=== PATIENT | female | born 1950 | race Caucasian/White ===

== ENCOUNTER 2017-08-16 20:40 | Inpatient (IN) | payer MEDICARE, OTHER ==
[~2017-08-16] VITALS: Ht 162.6 cm; Wt 61.0 kg
[2017-08-16 20:42] VITALS: BP 129/70; PULSE 111; RESP 16; TEMP 96.7
[2017-08-16] MEDS ORDERED: SODIUM CHLORIDE 0.9% FLUSH 5 ML FLUSH IV FLUSH PRN (22:15)
--- NOTE | 2017-08-16 22:15 | PD ---
HPI Chief Complaint: Psychiatric Symptoms Time Seen by Provider: 21:54 Travel History International Travel<30 days: No Contact w/Intl Traveler<30days: No Traveled to known affect area: No History of Present Illness HPI Patient is brought into the emergency Department by her grandson. Patient states that she recently came here from [place] to try to start a new life. Patient states that she is having difficulty sleeping over the past 4 days. Patient states she's been having increasing neck pain over the past 4 days as well and reports difficulty swallowing from time to time. Patient states she feels that her lymph nodes are swollen. Patient reports intermittent headaches with this. Patient has a history of COPD has occasional shortness of breath that she uses her inhaler for this and seems to help. Patient reports nonproductive cough with this. Patient denies any known fevers, nausea, vomiting, chest pain, abdominal pain, loss change in bowel or bladder, homicidal or suicidal ideations, weight loss, or other acute medical concerns. Patient states she is wanting to get in with a neurologist for her chronic neck pain as well as with pain management. Patient's grandson spoke with me outside of the room states that he received a call a few days ago from [facility] asking if he be able to allow his grandmother to come to [place] to stay with him as she was apparently asking for this. Patient was reportedly staining and some type of long term and grandson was willing to have her come down. States he picked her up in [place] 2 days ago everything seemed fine initially. However yesterday patient started talking about how [place] would not allow her to do things. States patient will call him by different names and become angry. States he found her in the bathroom crying, making statements that she did not want to live, and had to break into the bathroom using a butter knife to get her out. States today that he found his grandmother making a sandwich with sharp knives laid out on the table range from small to big, which caused him some concern as he has small children at home. Patient states he is last saw his grandmother approximately 10 years and does not much about her history. States he spoke with his mother, who is the patient's daughter, and was told that his grandmother has a history of paranoid schizophrenia, but refuses to take medication for this. [facility] Past Medical History Anxiety: Yes Depression: Yes COPD: Yes Diminished Hearing: No Hypertension: Yes Tetanus Vaccination: Unknown ?: Not LMP: menpause Past Surgical History Appendectomy: Yes Social History Alcohol Use: No Tobacco Use: Yes Substance Use: No Allergies-Medications (Allergen,Severity, Reaction): Coded Allergies: No Known Allergies (Unverified , 08/16/17) Review of Systems Except as stated in HPI: all other systems reviewed are Neg Physical Exam Narrative GENERAL: Well-developed, well nourished, in no acute distress, and non-ill appearing. SKIN: Focused skin assessment warm and dry. HEAD: Atraumatic. Normocephalic. EYES: Pupils equal and round. EOMI. No scleral icterus. No injection or drainage. ENT: No nasal bleeding or discharge. Mucous membranes pink and moist. Posterior pharynx non-erythematous and without exudate. Uvula is midline. Tympanic membranes are pearly connor bilaterally. NECK: Trachea midline. Mild cervical lymphadenopathy. Supple. No nuclear rigidity. CARDIOVASCULAR: Regular rate and rhythm. No murmur appreciated. RESPIRATORY: No accessory muscle use. No respiratory distress. Scant wheezing throughout. Breath sounds equal bilaterally. MUSCULOSKELETAL: No obvious deformities. No clubbing. No cyanosis. No edema. Full range of motion. NEUROLOGICAL: Awake and alert. No obvious cranial nerve deficits. Motor grossly within normal limits. Normal speech. PSYCHIATRIC: Appropriate mood and affect; insight and judgment normal. Data Data Last Documented VS Vital Signs Date Time Temp Pulse Resp B/P (MAP) Pulse Ox O2 Delivery O2 Flow Rate FiO2 08/16/17 20:42 96.7 111 16 129/70 (89) Room Air Orders Orders Electrocardiogram (08/16/17 22:05) Ammonia (08/16/17 22:05) Complete Blood Count With Diff (08/16/17 22:05) Comprehensive Metabolic Panel (08/16/17 22:05) Prothrombin Time / Inr (Pt) (08/16/17 22:05) Act Partial Throm Time (Ptt) (08/16/17 22:05) Troponin I (08/16/17 22:05) Thyroid Stimulating Hormone (08/16/17 22:05) Urinalysis - C+S If Indicated (08/16/17 22:05) Chest, Single Ap (08/16/17 22:05) Ct Brain W/O Iv Contrast(Rout) (08/16/17 22:05) Ecg Monitoring (08/16/17 22:05) Iv Access Insert/Monitor (08/16/17 22:05) Oximetry (08/16/17 22:05) Sodium Chloride 0.9% Flush (Ns Flush) (08/16/17 22:15) Drug Screen, Random Urine (08/16/17 22:05) Alcohol (Ethanol) (08/16/17 22:05) Tylenol (Acetaminophen) (08/16/17 22:05) Salicylates (Aspirin) (08/16/17 22:05) Group A Rapid Strep Screen (08/16/17 22:05) Ct Soft Tiss Neck W Iv Cont (08/16/17 ) MDM Medical Decision Making Medical Screen Exam Complete: Yes Emergency Medical Condition: Yes Differential Diagnosis Strep pharyngitis, retropharyngeal abscess, mass, pneumonia, metabolic disturbance, schizophrenia, UTI, COPD exacerbation, lymphoma, other Narrative Course Patient was seen and examined. Initial laboratory and radiologic studies were ordered. Patient was signed out to Dr. Kerns at the end of my shift. Please see his documentation for final diagnosis and disposition. Vinh Beach Aug 16, 2017 22:15
--- NOTE | 2017-08-16 22:55 | RADRPT ---
EXAM DATE/TIME: 08/16/2017 22:37 [facility] COMPARISON: No previous studies available for comparison. INDICATIONS : Cough and shortness of breath. MEDICAL HISTORY : Unobtainable. SURGICAL HISTORY : Unobtainable. ENCOUNTER: Initial ACUITY: 1 day PAIN SCORE: Non-responsive. LOCATION: chest FINDINGS: Lungs are hyperinflated. There is no evidence of acute air space disease or congestion. There are no concerning nodules or pleural effusions. Heart and mediastinal structures are unremarkable. CONCLUSION: COPD No evidence of acute process. Juno Uriostegui MD on August 16, 2017 at 22:53 Board Certified Radiologist. This report was verified electronically.
[2017-08-17] VITALS: BP 125/68; PULSE 88; RESP 16; O2SAT 100
[2017-08-17 00:08] LABS: BACTERIA, URINE RARE /hpf; BLOOD, URINE NEG (NEG); COMMENT (UR) CATH-CULTURE IND; CULTURE IF INDICATED CATH CULTURE IND; GLUCOSE,URINE NEG (NEG); HYALINE CAST, URINE 4 /lpf (RARE); KETONE, URINE NEG (NEG); NITRITE,URINE NEG (NEG); PH, URINE 5.5 (5.0-8.5); SQUAMOUS EPITHELIAL CELL URINE 1 /hpf (0-5); URINE COLOR YELLOW (YELLW/STRAW)
[2017-08-17 00:15] LABS: AUTOMATED NEUTROPHIL # 5.4 TH/MM3 (1.8-7.7); BASOPHIL # 0.1 TH/MM3 (0-0.2); EOSINOPHIL # 0.6 TH/MM3 (0-0.4); EOSINOPHIL % 6.8 % (0.0-4.0); HEMATOCRIT 33.3 % (35.0-46.0); HEMO FLAGS DIFF FINAL; LYMPH % 21.8 % (9.0-44.0); LYMPHOCYTE # 1.9 TH/MM3 (1.0-4.8); MEAN CELL VOLUME 85.4 FL (80.0-100.0); MEAN CORPUSCULAR HEMOGLOBIN 28.1 PG (27.0-34.0); MEAN CORPUSCULAR HGB CONC 32.9 % (32.0-36.0); NEUT % 62.4 % (16.0-70.0); PLATELET COUNT 305 TH/MM3 (150-450); RED BLOOD COUNT 3.89 MIL/MM3 (4.00-5.30); RED CELL DISTRIBUTION WIDTH 16.9 % (11.6-17.2); WHITE BLOOD COUNT 8.6 TH/MM3 (4.0-11.0)
[2017-08-17 00:27] LABS: ALCOHOL LESS THAN 3 MG/DL (0-5); ALT (GPT) 17 U/L (10-53); ANION GAP 7 MEQ/L (5-15); AST (GOT) 14 U/L (15-37); BICARBONATE 26.6 MEQ/L (21.0-32.0); BLOOD UREA NITROGEN 34 MG/DL (7-18); CHLORIDE 100 MEQ/L (98-107); GLOMERULAR FILTRATION RATE 30 ML/MIN (>89); POTASSIUM 3.9 MEQ/L (3.5-5.1); SODIUM (NA) 134 MEQ/L (136-145)
[2017-08-17 00:37] LABS: ACETAMINOPHEN LESS THAN 2.0 MCG/ML (10.0-30.0); ALKALINE PHOSPHATASE 78 U/L (45-117); TOTAL BILIRUBIN ADULT 0.3 MG/DL (0.2-1.0)
[2017-08-17 00:38] LABS: APTT (PATIENT) 29.5 SEC (24.3-30.1); INTERNATIONAL NORMALIZED RATIO 0.9 RATIO; PROTHROMBIN TIME - PATIENT 10.1 SEC (9.8-11.6)
--- NOTE | 2017-08-17 02:37 | RADRPT ---
EXAM DATE/TIME: 08/17/2017 02:03 [facility] COMPARISON: No previous studies available for comparison. INDICATIONS : Altered mental status. RADIATION DOSE: 56.35 CTDIvol (mGy) MEDICAL HISTORY : Chronic obstructive pulmonary disease. Hypertension. SURGICAL HISTORY : Appendectomy. ENCOUNTER: Initial ACUITY: 1 day PAIN SCALE: 0/10 LOCATION: cranial TECHNIQUE: Multiple contiguous axial images were obtained of the head. Using automated exposure control and adj ustment of the mA and/or kV according to patient size, radiation dose was kept as low as reasonably a chievable to obtain optimal diagnostic quality images. DICOM format image data is available electro nically for review and comparison. FINDINGS: CEREBRUM: The ventricles are normal for age. No evidence of midline shift, mass lesion, hemorrhage or acute in farction. No extra-axial fluid collections are seen. POSTERIOR FOSSA: The cerebellum and brainstem are intact. The 4th ventricle is midline. The cerebellopontine angle i s unremarkable. EXTRACRANIAL: The visualized portion of the orbits is intact. SKULL: The calvaria is intact. No evidence of skull fracture. CONCLUSION: No acute disease. Dylan Haddad MD on August 17, 2017 at 2:35 Board Certified Radiologist. This report was verified electronically.
--- NOTE | 2017-08-17 02:45 | RADRPT ---
EXAM DATE/TIME: 08/17/2017 02:05 [facility] COMPARISON: No previous studies available for comparison. INDICATIONS : Neck pain and difficulty swallowing. IV CONTRAST: None RADIATION DOSE: 10.24 CTDIvol (mGy) MEDICAL HISTORY : Chronic obstructive pulmonary disease. Hypertension. SURGICAL HISTORY : Appendectomy. ENCOUNTER: Initial ACUITY: 4 - 6 days PAIN SCALE: 4/10 LOCATION: neck TECHNIQUE: Volumetric scanning of the neck was performed. Using automated exposure control and adjustment of th e mA and/or kV according to patient size, radiation dose was kept as low as reasonably achievable to obtain optimal diagnostic quality images. DICOM format image data is available electronically for re view and comparison. FINDINGS: NASOPHARYNX: The nasopharyngeal airway has a normal configuration. No mucosal thickening or mass is seen. OROPHARYNX: The intrinsic muscles of the tongue are symmetric. The tonsillar pillars are intact. The prevertebr al soft tissues are not thickened. LARYNX: The supraglottic, glottic, and infraglottic structures are intact. PARAPHARYNGEAL: The parapharyngeal space is intact. SALIVARY GLANDS: The parotid and submandibular glands are intact. LYMPH NODES: No enlarged or necrotic-appearing nodes. THYROID: Homogeneous enhancement without evidence of nodule. BONES: Unremarkable. OTHER: Calcifications are seen in the carotid bulb regions. There is mild left maxillary sinus disease. Ther e is emphysematous change of the lung apices. CONCLUSION: 1. The cause of the patient's difficulty swallowing is not seen. 2. Mild left maxillary sinus disease. Dylan Haddad MD on August 17, 2017 at 2:36 Board Certified Radiologist. This report was verified electronically.
--- NOTE | 2017-08-17 03:55 | PD ---
Physical Exam Narrative Patient was seen by my assistant coach and signed out to me. Data Data Last Documented VS Vital Signs Date Time Temp Pulse Resp B/P (MAP) Pulse Ox O2 Delivery O2 Flow Rate FiO2 08/17/17 04:00 90 16 128/62 (84) 99 Room Air 08/16/17 20:42 96.7 Orders Orders Electrocardiogram (08/16/17 22:05) Ammonia (08/16/17 22:05) Complete Blood Count With Diff (08/16/17 22:05) Comprehensive Metabolic Panel (08/16/17 22:05) Prothrombin Time / Inr (Pt) (08/16/17 22:05) Act Partial Throm Time (Ptt) (08/16/17 22:05) Troponin I (08/16/17 22:05) Thyroid Stimulating Hormone (08/16/17 22:05) Urinalysis - C+S If Indicated (08/16/17 22:05) Chest, Single Ap (08/16/17 22:05) Ct Brain W/O Iv Contrast(Rout) (08/16/17 22:05) Ecg Monitoring (08/16/17 22:05) Iv Access Insert/Monitor (08/16/17 22:05) Oximetry (08/16/17 22:05) Sodium Chloride 0.9% Flush (Ns Flush) (08/16/17 22:15) Drug Screen, Random Urine (08/16/17 22:05) Alcohol (Ethanol) (08/16/17 22:05) Tylenol (Acetaminophen) (08/16/17 22:05) Salicylates (Aspirin) (08/16/17 22:05) Group A Rapid Strep Screen (08/16/17 22:05) Urine Culture (08/16/17 23:15) Strep Culture (Group A) (08/16/17 23:05) Ct Soft Tiss Neck W/O Iv Cont (08/16/17 ) Lorazepam Inj (Ativan Inj) (08/17/17 04:15) Haloperidol Inj (Haldol Inj) (08/17/17 04:15) Psych Screen (08/17/17 04:11) Labs Laboratory Tests Test 08/16/17 22:48 08/16/17 22:55 08/16/17 23:15 White Blood Count 8.6 TH/MM3 Red Blood Count 3.89 MIL/MM3 Hemoglobin 10.9 GM/DL Hematocrit 33.3 % Mean Corpuscular Volume 85.4 FL Mean Corpuscular Hemoglobin 28.1 PG Mean Corpuscular Hemoglobin Concent 32.9 % Red Cell Distribution Width 16.9 % Platelet Count 305 TH/MM3 Mean Platelet Volume 7.5 FL Neutrophils (%) (Auto) 62.4 % Lymphocytes (%) (Auto) 21.8 % Monocytes (%) (Auto) 8.0 % Eosinophils (%) (Auto) 6.8 % Basophils (%) (Auto) 1.0 % Neutrophils # (Auto) 5.4 TH/MM3 Lymphocytes # (Auto) 1.9 TH/MM3 Monocytes # (Auto) 0.7 TH/MM3 Eosinophils # (Auto) 0.6 TH/MM3 Basophils # (Auto) 0.1 TH/MM3 CBC Comment DIFF FINAL Differential Comment Prothrombin Time 10.1 SEC Prothromb Time International Ratio 0.9 RATIO Activated Partial Thromboplast Time 29.5 SEC Blood Urea Nitrogen 34 MG/DL Creatinine 1.69 MG/DL Random Glucose 104 MG/DL Total Protein 6.8 GM/DL Albumin 3.5 GM/DL Calcium Level 9.3 MG/DL Alkaline Phosphatase 78 U/L Aspartate Amino Transf (AST/SGOT) 14 U/L Alanine Aminotransferase (ALT/SGPT) 17 U/L Total Bilirubin 0.3 MG/DL Sodium Level 134 MEQ/L Potassium Level 3.9 MEQ/L Chloride Level 100 MEQ/L Carbon Dioxide Level 26.6 MEQ/L Anion Gap 7 MEQ/L Estimat Glomerular Filtration Rate 30 ML/MIN Ammonia 29 MCMOL/L Troponin I LESS THAN 0.02 NG/ML Thyroid Stimulating Hormone 3rd Gen 1.460 uIU/ML Acetaminophen Level LESS THAN 2.0 MCG/ML Ethyl Alcohol Level LESS THAN 3 MG/DL Salicylates Level LESS THAN 1.7 MG/DL Urine Color YELLOW Urine Turbidity CLEAR Urine pH 5.5 Urine Specific [place] 1.014 Urine Protein TRACE mg/dL Urine Glucose (UA) NEG mg/dL Urine Ketones NEG mg/dL Urine Occult Blood NEG Urine Nitrite NEG Urine Bilirubin NEG Urine Urobilinogen LESS THAN 2.0 MG/DL Urine Leukocyte Esterase SMALL Urine RBC LESS THAN 1 /hpf Urine WBC LESS THAN 1 /hpf Urine Squamous Epithelial Cells 1 /hpf Urine Bacteria RARE /hpf Urine Hyaline Casts 4 /lpf Microscopic Urinalysis Comment CATH-CULTURE IND Urine Opiates Screen NEG Urine Barbiturates Screen NEG Urine Amphetamines Screen NEG Urine Benzodiazepines Screen NEG Urine Cocaine Screen NEG Urine Cannabinoids Screen NEG MDM Supervised Visit with ALTHEA: Yes Interpretation(s) 3:52 AM. Chest x-ray shows no acute consolidation. CT scan of the brain negative acute pathology. CT soft tissue neck shows no acute pathology. Mild left maxillary sinus disease. CBC with WBC 8.6. Hemoglobin 10 point hematocrit 33.3. Normal differential. BUN 34. Creatinine 1.69. Cardiac enzymes are normal. Ammonia 29. TSH normal. Strep screen negative. Narrative Course 3:55 AM. Patient is medically cleared for psychiatric evaluation and disposition. Param Kerns MD Aug 17, 2017 03:55
[2017-08-17 04:00] VITALS: BP 128/62; PULSE 90; RESP 16; O2SAT 99
[2017-08-17] MEDS ORDERED: HALOPERIDOL LACTATE 5 MG/ML AMP IM ONE (04:15)
[2017-08-17] MEDS ORDERED: LORazepam 2 MG/ML VIAL IV PUSH ONE (04:15)
[2017-08-17 07:00] VITALS: O2SAT 100
--- NOTE | 2017-08-17 07:30 | EKG ---
Date Performed: 08/17/2017 Time Performed: 00:55:53 PTAGE: 67 years EKG: Baseline artifact present SINUS TACHYCARDIA ABNORMAL RHYTHM ECG NO PREVIOUS TRACING DOCTOR: Greg Schreiber Interpretating Date/Time 08/17/2017 07:28:19
[2017-08-17] MEDS ORDERED: ALBUAER3 INH (07:40)
[2017-08-17 12:52] VITALS: BP 115/70; PULSE 107; RESP 20; TEMP 98.6; O2SAT 93
[2017-08-17] MEDS ORDERED: DIPH25CA PO (13:09)
[2017-08-17] MEDS ORDERED: ACET-929 PO (13:09)
[2017-08-17] MEDS ORDERED: ALEV220T14 PO (13:09)
[2017-08-17] MEDS ORDERED: RESP: ALBUTEROL 2.5 MG/IPRATROPIUM 0.5 MG NEB (SCH) INH ONE (16:00)
[2017-08-17] MEDS: NICOTINE 21 MG/24 HR PATCH T-DERMAL SCH (17:00)
[2017-08-17] MEDS ORDERED: LORazepam 0.5 MG TAB PO PRN (17:00)
[2017-08-17] MEDS ORDERED: ACETAMINOPHEN 325 MG TAB PO PRN (17:00)
[2017-08-17] MEDS ORDERED: LORazepam 1 MG TAB PO PRN (17:00)
[2017-08-17] MEDS ORDERED: diphenhydrAMINE HCL 25 MG CAP PO PRN (17:00)
[2017-08-17] MEDS ORDERED: MAGNESIUM HYDROXIDE SUSP 30 ML CUP PO PRN (17:00)
[2017-08-17] MEDS ORDERED: ALUMINUM/MAGNESIUM/SIMETH 30 ML CUP PO PRN (17:00)
[2017-08-17] MEDS ORDERED: LORazepam 2 MG/ML VIAL IM PRN ×2 (17:00)
[2017-08-17] MEDS ORDERED: [UNRECOGNIZED DRUG - OTHER] PO PRN (17:00)
[2017-08-17 18:00] VITALS: BP 127/75; PULSE 106; RESP 16
[2017-08-17 20:20] VITALS: BP 100/62; PULSE 106; RESP 18; TEMP 97.7; O2SAT 94
[2017-08-17] MEDS ORDERED: RESP: ALBUTEROL 2.5 MG/IPRATROPIUM 0.5 MG NEB (SCH) NEB ONE (22:45)
[2017-08-17] MEDS ORDERED: GABAPENTIN 300 MG CAP PO ONE (22:45)
[2017-08-18 00:25] VITALS: O2SAT 95
[2017-08-18 05:46] VITALS: BP 127/70; PULSE 96; RESP 18; TEMP 97.5
[2017-08-18] MEDS: GABAPENTIN 300 MG CAP PO SCH ×4 (08:25→18:00)
[2017-08-18] MEDS: NICOTINE 21 MG/24 HR PATCH T-DERMAL SCH (08:26)
[2017-08-18] MEDS: REMOVE OLD PATCH T-DERMAL SCH (08:27)
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
[2017-08-18] MEDS ORDERED: QUEtiapine FUMARATE 25 MG TAB PO SCH (10:30)
[2017-08-18] MEDS ORDERED: PARoxetine HCL 20 MG TAB PO SCH (11:00)
[2017-08-18] MEDS: amLODIPine BESYLATE 5 MG TAB PO SCH (11:52)
[2017-08-18] MEDS: LORATADINE 10 MG TAB PO SCH (11:53)
--- NOTE | 2017-08-18 12:32 | PD.CONS ---
H[facility] Consult Requested By Primary Care Physician Unknown Diagnoses: (1) COPD (chronic obstructive pulmonary disease) History of Present Illness Mrs. Clement is a 67-year-old female. She is admitted secondary to psychosis. Her grandson has reported knowledge of past medical history of schizophrenia in addition to this she has general anxiety disorder, depression, and hypertension. She was [facility] secondary to [facility]. She takes an albuterol inhaler at baseline. She was not aware of her dosing regime so this has not been continued. She reports that at baseline she is using this inhaler multiple times a day so she likely needs step up in her therapy. Today she is needing her inhaler but does not feel she is in respiratory distress. No fevers or cough. Review of Systems Constitutional: DENIES: Diaphoretic episodes, Fatigue, Fever, Chills, Change in appetite Eyes: DENIES: Blurred vision, Diplopia, Eye inflammation, Eye pain Ears, nose, mouth, throat: DENIES: Tinnitus, Hearing loss, Vertigo, Nasal discharge Respiratory: COMPLAINS OF: Wheezing, Shortness of breath, DENIES: Cough Cardiovascular: DENIES: Chest pain, Palpitations, Syncope Gastrointestinal: DENIES: Abdominal pain, Black stools, Bloody stools Musculoskeletal: DENIES: Joint pain, Muscle aches, Stiffness Integumentary: DENIES: Abnormal pigmentation, Pruritus, Rash Hematologic/lymphatic: DENIES: Bruising, Lymphadenopathy Immunologic/allergic: DENIES: Eczema, Urticaria Neurologic: DENIES: Abnormal gait, Headache, Paresthesias Psychiatric: DENIES: Anxiety, Confusion, Hallucinations Past Family Social History Allergies: Coded Allergies: No Known Allergies (Unverified , 08/17/17) Past Medical History COPD Hypertension Gen. anxiety disorder History of depression History of schizophrenia Past Surgical History Appendectomy Reported Medications Reported Meds & Active Scripts Active Reported Diphenhydramine (Diphenhydramine HCl) 25 Mg Cap 25 Mg PO Q6H PRN Acetaminophen Pm Gelcap (Acetaminophen/Diphenhydramine) 500 Mg-25 Mg Tablet 500 Mg PO HS PRN Aleve Arthritis (Naproxen Sodium) 220 Mg Tab 220 Mg PO BID PRN Proair Hfa 8.5 GM Inh (Albuterol Sulfate) 90 Mcg/Act Aer 2 Puff INH Q4-6H PRN 108 mcg/actuation Active Ordered Medications Administered Medications Medications (Trade) Dose Ordered Sig/Nahomy Route PRN Reason Start Time Stop Time Status Last Admin Dose Admin Nicotine (Habitrol 21 Mg Patch.24 Hr) 1 patch DAILY T-DERMAL 08/17/17 17:00 08/18/17 08:26 Miscellaneous Information 1 DAILY T-DERMAL 08/18/17 09:00 08/18/17 08:27 Gabapentin (Neurontin) 300 mg TID PO 08/18/17 09:00 08/18/17 08:25 Amlodipine Besylate (Norvasc) 5 mg DAILY PO 08/18/17 10:30 08/18/17 11:52 Loratadine (Claritin) 10 mg DAILY PO 08/18/17 10:30 08/18/17 11:53 Quetiapine Fumarate (SEROquel) 25 mg BID PO 08/18/17 10:30 08/18/17 11:53 Family History Patient cannot recall medical family history in her parents and siblings Social History No reported alcohol abuse No reported illicit drug abuse Patient reports smoking, cannot quantify Physical Exam Vital Signs Vital Signs Date Time Temp Pulse Resp B/P (MAP) Pulse Ox O2 Delivery O2 Flow Rate FiO2 08/18/17 05:46 97.5 96 18 127/70 (89) 08/18/17 00:25 95 08/17/17 20:20 97.7 106 18 100/62 (75) 94 08/17/17 19:45 08/17/17 18:00 106 16 127/75 (92) Room Air 08/17/17 15:57 94 08/17/17 12:52 98.6 107 20 115/70 (85) 93 Physical Exam GENERAL: NAD, A&Ox2 HEAD: Normocephalic. NECK: Supple, trachea midline. No lymphadenopathy. EYES: No scleral icterus. No injection or drainage. CARDIOVASCULAR: Regular rate and rhythm without murmurs, gallops, or rubs. RESPIRATORY: Breath sounds equal bilaterally. No accessory muscle use. Trace wheezing and left. GASTROINTESTINAL: Abdomen soft, non-tender, nondistended. MUSCULOSKELETAL: No cyanosis, or edema. SKIN: Warm and dry. NEURO: No focal neurological deficitis. Laboratory Date/Time Source Procedure Growth Status 08/16/17 23:05 Throat Group A Streptococcus Screen - Preliminary IMMATURE GROWTH - REINCUBATE Resulted 10/14/17 23:15 Urine Catheterized Urine Urine Culture - Final 10-50,000 CFU/ML MIXED GRAM POSITIVE ... Complete Result Diagram: 08/16/178 08/16/172247 Imaging Last Impressions Head CT 08/16/172204 Signed Impressions: Service Date/Time: Thursday, August 17, 2017 02:03 - CONCLUSION: No acute disease. Dylan Haddad MD Chest X-Ray 08/16/172204 Signed Impressions: Service Date/Time: Wednesday, August 16, 2017 22:37 - CONCLUSION: COPD No evidence of acute process. Juno Uriostegui MD Neck CT 08/16/17 0000 Signed Impressions: Service Date/Time: Thursday, August 17, 2017 02:05 - CONCLUSION: 1. The cause of the patient's difficulty swallowing is not seen. 2. Mild left maxillary sinus disease. Dylan Haddad MD Assessment and Plan Problem List: (1) COPD (chronic obstructive pulmonary disease) ICD Code: J44.9 - Chronic obstructive pulmonary disease, unspecified Assessment and Plan Assessment and plan 67-year-old female admitted secondary to psychosis COPD Treatment and optimize Resume albuterol every 4 hours as needed via inhaler Start Symbicort twice a day inhaler for maintenance No need to monitor Follow up as an outpatient History of hypertension This does not appear present at this time No need to treat Psychosis History of schizophrenia History of general anxiety disorder History of depression Management via psychiatry Discharge planning Twice a day Symbicort, low-dose Daily as needed albuterol inhaler Follow-up with PCP Changes with patient's breathing treatments are likely to occur slowly. No further inpatient evaluation is needed at this time unless her condition exacerbates. Medical consult will sign off at this point. Peter Dickerson MD Aug 18, 2017 12:32
[2017-08-18] MEDS ORDERED: SYMB80AE INH (12:34)
[2017-08-18] MEDS: ALBUTEROL SULFATE 90 MCG/ACT HFA 8 GM INHALER INH PRN (14:11)
[2017-08-18 14:44] LABS: AUTOMATED NEUTROPHIL # 4.1 TH/MM3 (1.8-7.7); BASOPHIL # 0.1 TH/MM3 (0-0.2); EOSINOPHIL # 0.3 TH/MM3 (0-0.4); EOSINOPHIL % 4.9 % (0.0-4.0); HEMATOCRIT 32.2 % (35.0-46.0); HEMO FLAGS DIFF FINAL; LYMPH % 27.4 % (9.0-44.0); LYMPHOCYTE # 1.9 TH/MM3 (1.0-4.8); MEAN CORPUSCULAR HEMOGLOBIN 28.3 PG (27.0-34.0); MEAN CORPUSCULAR HGB CONC 33.3 % (32.0-36.0); MONO % 8.4 % (0.0-8.0); NEUT % 58.3 % (16.0-70.0); PLATELET COUNT 304 TH/MM3 (150-450); RED BLOOD COUNT 3.78 MIL/MM3 (4.00-5.30); RED CELL DISTRIBUTION WIDTH 16.5 % (11.6-17.2); WHITE BLOOD COUNT 7.1 TH/MM3 (4.0-11.0)
[2017-08-18 15:32] LABS: ANION GAP 5 MEQ/L (5-15); BICARBONATE 29.2 MEQ/L (21.0-32.0); BLOOD UREA NITROGEN 27 MG/DL (7-18); CHLORIDE 97 MEQ/L (98-107); GLOMERULAR FILTRATION RATE 47 ML/MIN (>89); HDL CHOLESTEROL 93.4 MG/DL (40.0-60.0); LDL CHOLESTEROL 77 MG/DL (0-99); POTASSIUM 4.7 MEQ/L (3.5-5.1); SODIUM (NA) 131 MEQ/L (136-145)
[2017-08-18 16:23] LABS: HEMOGLOBIN A1a 1.2 %; HEMOGLOBIN Ao 84.2 %; HEMOGLOBIN F 0.9 %; HEMOGLOBIN LA1C 2.3 %; HEMOGLOBIN P3 5.7 %
[2017-08-18] MEDS: NAPROXEN 250 MG TAB PO PRN (17:40)
[2017-08-18 18:00] VITALS: BP 128/84; PULSE 103; RESP 17; TEMP 97.4; O2SAT 97
[2017-08-18] MEDS: BUDESONIDE-FORMOTEROL 80/4.5 MCG INHALER INH SCH ×2 (21:00→21:24)
[2017-08-19] MEDS: NAPROXEN 250 MG TAB PO PRN ×2 (02:50→22:23)
[2017-08-19 06:00] VITALS: BP 161/74; PULSE 116; RESP 17; TEMP 98; O2SAT 96
[2017-08-19] MEDS: GABAPENTIN 300 MG CAP PO SCH ×3 (09:00→16:31)
[2017-08-19] MEDS: LORATADINE 10 MG TAB PO SCH (09:00)
[2017-08-19] MEDS: NICOTINE 21 MG/24 HR PATCH T-DERMAL SCH (09:00)
[2017-08-19] MEDS: BUDESONIDE-FORMOTEROL 80/4.5 MCG INHALER INH SCH ×2 (09:00→21:00)
[2017-08-19] MEDS: REMOVE OLD PATCH T-DERMAL SCH (09:00)
[2017-08-19] MEDS: amLODIPine BESYLATE 5 MG TAB PO SCH (09:47)
[2017-08-19] MEDS: ALBUTEROL SULFATE 90 MCG/ACT HFA 8 GM INHALER INH PRN (09:49)
--- NOTE | 2017-08-19 14:09 | HHI.PYPN ---
Subjective Remarks Patient seen and examined. Chart reviewed. Case discussed in treatment team. Per nursing staff, the patient has been refusing nearly all medications including Risperdal. The only medication that she did accept was her Norvasc. Counselor reports that the patient is discharged focused. I have additionally discussed the case with the occupational therapist who expresses significant concerns about the patient's ability to function safely in the community in her present mental state. On my examination today, the patient presents as quite paranoid. She stops speaking periodically and stares intently out the door of her room at the people passing by because of her paranoia. She says that she dislikes being in the day area because "People get loud. They single me out. I know what's happening." She does indeed insist on discharge, saying her plan is to stay with grandson, although she has no idea if he is willing to have her return to his home. Affect is quite irritable. She denies SI, HI but seems unreliable to contract for safety in her present state. She denies AVH but appears internally preoccupied. She is extremely resistant to medications and says that she intends to refuse any psychotropic medications. I do endeavor at some length to engage her in a discussion of the relative risks and benefits of medications for her psychiatric illness, but she continues to say that she will refuse any and all psychotropics. No reported side effects from medication she is accepting. Remains somewhat somatically preoccupied, although this is fairly diffuse. Chief Complaint: psychosis Review of Systems ROS Limitations: Psychotic, Poor Historian Except as stated in HPI: all other systems reviewed are Neg Mental Status Examination Appearance: Appropriate Consciousness: Other (alert and hypervigilant) Orientation: Person, Place, Date/Time (except for date) Motor Activity: Other (No motor abnormalities noted) Speech: Unremarkable Language: Adequate Fund of Knowledge: Adequate Attention and Concentration: Easily Distracted Mood: Irritable Affect: Other (restricted and dysphoric) Thought Process & Associations: Other (somewhat perseverative on delusional themes) Hallucination Type: None (no AVH reported today although the patient does appear internally stimulated) Delusion Type: Paranoid Suicidal Ideation: No (unreliable to contract for safety) Suicidal Plan: No Suicidal Intention: No Homicidal Ideation: No Homicidal Plan: No Homicidal Intention: No Insight: Poor Judgment: Poor Results Labs Test 08/18/17 14:28 White Blood Count 7.1 TH/MM3 Red Blood Count 3.78 MIL/MM3 Hemoglobin 10.7 GM/DL Hematocrit 32.2 % Mean Corpuscular Volume 85.0 FL Mean Corpuscular Hemoglobin 28.3 PG Mean Corpuscular Hemoglobin Concent 33.3 % Red Cell Distribution Width 16.5 % Platelet Count 304 TH/MM3 Mean Platelet Volume 7.1 FL Neutrophils (%) (Auto) 58.3 % Lymphocytes (%) (Auto) 27.4 % Monocytes (%) (Auto) 8.4 % Eosinophils (%) (Auto) 4.9 % Basophils (%) (Auto) 1.0 % Neutrophils # (Auto) 4.1 TH/MM3 Lymphocytes # (Auto) 1.9 TH/MM3 Monocytes # (Auto) 0.6 TH/MM3 Eosinophils # (Auto) 0.3 TH/MM3 Basophils # (Auto) 0.1 TH/MM3 CBC Comment DIFF FINAL Differential Comment Blood Urea Nitrogen 27 MG/DL Creatinine 1.15 MG/DL Random Glucose 80 MG/DL Calcium Level 9.3 MG/DL Sodium Level 131 MEQ/L Potassium Level 4.7 MEQ/L Chloride Level 97 MEQ/L Carbon Dioxide Level 29.2 MEQ/L Anion Gap 5 MEQ/L Estimat Glomerular Filtration Rate 47 ML/MIN Hemoglobin A1c 5.7 % Triglycerides Level 64 MG/DL Cholesterol Level 183 MG/DL LDL Cholesterol 77 MG/DL HDL Cholesterol 93.4 MG/DL Cholesterol/HDL Ratio 1.95 RATIO Date/Time Source Procedure Growth Status 08/16/17 23:05 Throat Group A Streptococcus Screen - Final NO GP A BETA STREP ISOLATED. Complete 08/16/17 23:15 Urine Catheterized Urine Urine Culture - Final 10-50,000 CFU/ML MIXED GRAM POSITIVE ... Complete Labs reviewed. Anemia improved. Hyponatremia somewhat worse. GFR mildly improved. Vitals/IOs Vital Signs Date Time Temp Pulse Resp B/P (MAP) Pulse Ox O2 Delivery O2 Flow Rate FiO2 08/19/17 06:00 98.0 116 17 161/74 (103) 96 08/17/17 18:00 Room Air Intake and Output 08/19/17 08/19/17 08/20/17 08:00 16:00 00:00 Intake Total 120 ml 480 ml Balance 120 ml 480 ml Assessment & Plan Problem List: (1) Schizophrenia ICD Codes: F20.9 - Schizophrenia, unspecified Assessment & Plan Patient's psychotic symptoms are significantly more apparent today and seem more impairing, especially based on occupational therapy assessment. Patient is insisting on discharge and resistant to medications, but I fear that she is at significant risk for functional impairment as a consequence of her mental illness if she were discharged unmedicated at this point. I will therefore initiate a petition for involuntary psychiatric hospitalization in consult for a second opinion. I further will request a healthcare surrogate and guardian advocate because I do not believe that the patient is presently capacitated to consent for medications. I will continue the oral Risperdal as ordered and add Haldol IM backup should she refuse the oral Risperdal. I will check a BMP in the morning and ask the hospitalist to return to assess the patient's hyponatremia. Continue to monitor on the inpatient unit. Continue other medications and care as ordered. Justification for Cont. Inpt. Med changes. Impairment in reality construction. High risk for decompensation in less restrictive environment. Discharge Planning Pending psychiatric stabilization. Revised ELOS: 7-10 total inpatient days. Request HC Surrog/Guard Advoc?: Yes Problem Qualifiers (1) Schizophrenia: Qualified Codes: F20.0 - Paranoid schizophrenia Darell Gross MD Aug 19, 2017 14:09
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
[2017-08-19 18:00] VITALS: BP 164/95; PULSE 101; RESP 20; TEMP 98; O2SAT 95
[2017-08-20 05:53] VITALS: BP 130/83; PULSE 106; RESP 17; TEMP 97.6; O2SAT 93
[2017-08-20] MEDS: ALBUTEROL SULFATE 90 MCG/ACT HFA 8 GM INHALER INH PRN ×2 (07:20→17:35)
--- NOTE | 2017-08-20 08:19 | HHI.PYPN ---
Subjective Remarks Patient seen and examined. Chart reviewed. Case discussed with nursing staff. Patient is not sleeping per nursing staff. On my examination today, the patient seems considerably less guarded. She apologizes for her irritability yesterday. She says that the Risperdal "made a big difference" in a positive sense but remains resistant to medications generally. Complains of somewhat poor sleep. Somewhat intrusive and follows me around for a time on the unit after we have concluded our interview, although she is easily redirected. Denies side effects from medications. Chief Complaint: psychosis Review of Systems ROS Limitations: Poor Historian Except as stated in HPI: all other systems reviewed are Neg Mental Status Examination Appearance: Appropriate Consciousness: Alert Orientation: Person, Place (at least) Motor Activity: Other (No motor abnormalities noted) Speech: Unremarkable Language: Adequate Mood: Good Affect: Appropriate Thought Process & Associations: Other (mildly perseverative) Hallucination Type: None Delusion Type: Paranoid (lessened) Suicidal Ideation: No Suicidal Plan: No Suicidal Intention: No Homicidal Ideation: No Homicidal Plan: No Homicidal Intention: No Insight: Poor Judgment: Poor Results Labs Date/Time Source Procedure Growth Status 08/16/17 23:05 Throat Group A Streptococcus Screen - Final NO GP A BETA STREP ISOLATED. Complete 08/16/17 23:15 Urine Catheterized Urine Urine Culture - Final 10-50,000 CFU/ML MIXED GRAM POSITIVE ... Complete Labs reviewed. Stable hyponatremia. Mild hypercalcemia. GFR stable. Vitals/IOs Vital Signs Date Time Temp Pulse Resp B/P (MAP) Pulse Ox O2 Delivery O2 Flow Rate FiO2 08/20/17 05:53 97.6 106 17 130/83 (99) 93 08/17/17 18:00 Room Air Intake and Output 08/20/17 08/20/17 08/21/17 08:00 16:00 00:00 Intake Total 360 ml Balance 360 ml Assessment & Plan Problem List: (1) Schizophrenia ICD Codes: F20.9 - Schizophrenia, unspecified Assessment & Plan Continue Risperdal as ordered with plans to titrate as needed to target psychotic symptoms. To consider long-acting injectable. Add melatonin for sleep. Hospitalist has added sodium tablets and a follow-up BMP. Continue to monitor on the inpatient unit. Continue other medications include as ordered. Justification for Cont. Inpt. Impairment in reality construction. High risk for decompensation in less restrictive environment. Medication changes. Discharge Planning Pending psychiatric stabilization. Request HC Surrog/Guard Advoc?: Yes Problem Qualifiers (1) Schizophrenia: Qualified Codes: F20.0 - Paranoid schizophrenia Darell Gross MD Aug 20, 2017 08:19
[2017-08-20] MEDS: NICOTINE 21 MG/24 HR PATCH T-DERMAL SCH (09:00)
[2017-08-20] MEDS: REMOVE OLD PATCH T-DERMAL SCH (09:00)
[2017-08-20] MEDS: GABAPENTIN 300 MG CAP PO SCH ×3 (09:00→17:39)
[2017-08-20] MEDS: BUDESONIDE-FORMOTEROL 80/4.5 MCG INHALER INH SCH ×2 (09:00→20:59)
[2017-08-20] MEDS: LORATADINE 10 MG TAB PO SCH (09:22)
[2017-08-20] MEDS: amLODIPine BESYLATE 5 MG TAB PO SCH (09:22)
--- NOTE | 2017-08-20 11:15 | PD.TTN ---
Patient Problems 1. Discharge planning 2. Medication compliance 3. Knowledge deficit 4. Lack of coping skills Progress Toward Goals Provider Present: Dr. Gaurav Gross Provider Input: Dr. Gross's treatment team met to discuss patient, patient's treatment plan, and discharge. At this time patient continues to be selective with medication. Patient presents confused and disorganized. Patient continues to present with delusional content. Nurse(s) Input: Patient's Nurse Telma reports patient is restless, non compliant with medication. Has no insight into her situation. Psychiatric Counselors Present: KAY Tabor Psych Therapist Input: Patient is alert to person, place, but has poor insight into her situation. Patient is selective with her medication. Patient is exit seeking and states she wants to remain here in [place], instead of going back to [place]. Patient is restless, not sleeping well, eating ok. Patient's does appear to have some impairment in her cognitive ablility. Patient's short and intermediate accountant memory appear to be comprised. Patient's affect and mood appear to be congruent. Group Spec/RT/OT/PATI Present: PATI Rubin Elizabeth [facility] Aug 20, 2017 11:15
[2017-08-20 12:57] LABS: BICARBONATE 28.6 MEQ/L (21.0-32.0); POTASSIUM 4.5 MEQ/L (3.5-5.1)
--- NOTE | 2017-08-20 17:41 | HHI.PR ---
Subjective Remarks Hyponatremia is mildly suppressed. Appears at 131 over the last 3 days. No nausea/vomiting. May have been dehydrated at time of arrival (RAE was present, now resolved). If she rehydrated with free water this may have this effect. Objective Vital Signs Date Time Temp Pulse Resp B/P (MAP) Pulse Ox O2 Delivery O2 Flow Rate FiO2 08/20/17 05:53 97.6 106 17 130/83 (99) 93 08/19/17 18:00 98.0 101 20 164/95 (118) 95 I/O 08/19/17 08/19/17 08/19/17 08/20/17 08/20/17 08/20/17 07:02 15:02 23:02 07:02 15:02 23:02 Intake Total 600 ml 1950 ml 960 ml Balance 600 ml 1950 ml 960 ml Intake Oral 600 ml 1950 ml 960 ml # Voids 4 5 2 2 Result Diagram: 08/18/17 1428 08/20/17 1137 Objective Remarks GENERAL: NAD, A&Ox1 SKIN: Warm and dry. HEAD: Normocephalic. EYES: No scleral icterus. No injection or drainage. NECK: Supple, trachea midline. No JVD or lymphadenopathy. CARDIOVASCULAR: Regular rate and rhythm without murmurs, gallops, or rubs. RESPIRATORY: Breath sounds equal bilaterally. No accessory muscle use. GASTROINTESTINAL: Abdomen soft, non-tender, nondistended. MUSCULOSKELETAL: No cyanosis, or edema. BACK: Nontender without obvious deformity. No CVA tenderness. A/P Problem List: (1) Hyponatremia ICD Code: E87.1 - Hypo-osmolality and hyponatremia (2) Schizophrenia ICD Code: F20.9 - Schizophrenia, unspecified (3) COPD (chronic obstructive pulmonary disease) ICD Code: J44.9 - Chronic obstructive pulmonary disease, unspecified Assessment and Plan Assessment and plan 67-year-old female admitted secondary to psychosis. Hyponatremia present. Hyponatremia PO sodium chloride supplement BID for 2 days Follow sodium levels COPD Improved symtpoms Continue albuterol every 4 hours as needed via inhaler Continue Symbicort twice a day inhaler for maintenance No need to monitor Follow up as an outpatient History of hypertension This does not appear present at this time No need to treat Psychosis History of schizophrenia History of general anxiety disorder History of depression Management via psychiatry Problem Qualifiers (1) Schizophrenia: Qualified Codes: F20.0 - Paranoid schizophrenia Peter Dickerson MD Aug 20, 2017 17:41
[2017-08-20 18:44] VITALS: BP 159/90; PULSE 94; RESP 18; TEMP 98.6; O2SAT 96
[2017-08-20] MEDS: SODIUM CHLORIDE 1 GRAM TAB PO SCH (21:00)
[2017-08-20] MEDS: MELATONIN 5 MG TAB PO SCH (21:00)
[2017-08-21] MEDS: NAPROXEN 250 MG TAB PO PRN (03:35)
[2017-08-21 06:48] VITALS: BP 143/87; PULSE 92; RESP 17; TEMP 97.9; O2SAT 94
[2017-08-21] MEDS: REMOVE OLD PATCH T-DERMAL SCH (09:00)
[2017-08-21] MEDS: NICOTINE 21 MG/24 HR PATCH T-DERMAL SCH (09:00)
[2017-08-21] MEDS: BUDESONIDE-FORMOTEROL 80/4.5 MCG INHALER INH SCH ×2 (09:00→21:55)
[2017-08-21] MEDS: amLODIPine BESYLATE 5 MG TAB PO SCH (09:12)
[2017-08-21] MEDS: GABAPENTIN 300 MG CAP PO SCH ×3 (09:12→17:40)
[2017-08-21] MEDS: SODIUM CHLORIDE 1 GRAM TAB PO SCH ×2 (09:12→21:51)
[2017-08-21] MEDS: ALBUTEROL SULFATE 90 MCG/ACT HFA 8 GM INHALER INH PRN ×2 (09:12→21:50)
[2017-08-21] MEDS: LORATADINE 10 MG TAB PO SCH (09:12)
--- NOTE | 2017-08-21 12:28 | HHI.PYPN ---
Subjective Chief Complaint: psychosis Remarks Patient seen and examined with nurse. Chart reviewed. Case discussed with nursing staff. Patient noted to be somewhat seclusive but medication compliant. On my examination today, patient is once again more at ease. Paranoia seems significantly lessened. Patient herself does not feel like she was paranoid before, noting "that was not paranoia, there was just a lot of information coming at me." Feels like Risperdal is helping. Slept much better last night. No SI/HI. Denies side effects from medications. C/o mild cough and hoarseness but otherwise no physical complaints. Review of Systems Except as stated in HPI: all other systems reviewed are Neg Mental Status Examination Appearance: Appropriate Consciousness: Alert Orientation: Person, Place (at least) Motor Activity: Other (No abnormal motor movements noted) Speech: Unremarkable Mood: Good Affect: Appropriate (again appropriate) Thought Process & Associations: Other (fairly linear) Hallucination Type: None Delusion Type: Paranoid (again lessened) Suicidal Ideation: No (None voiced) Homicidal Ideation: No (None voiced) Insight: Poor Judgment: Poor Results Labs Date/Time Source Procedure Growth Status 08/16/17 23:05 Throat Group A Streptococcus Screen - Final NO GP A BETA STREP ISOLATED. Complete 08/16/17 23:15 Urine Catheterized Urine Urine Culture - Final 10-50,000 CFU/ML MIXED GRAM POSITIVE ... Complete Labs reviewed. BMP ordered for this morning listed as in process. Vitals/IOs Vital Signs Date Time Temp Pulse Resp B/P (MAP) Pulse Ox O2 Delivery O2 Flow Rate FiO2 08/21/17 06:48 97.9 92 17 143/87 (105) 94 08/17/17 18:00 Room Air Intake and Output 08/21/17 08/21/17 08/22/17 08:00 16:00 00:00 Intake Total 400 ml Balance 400 ml Assessment & Plan Problem List: (1) Schizophrenia ICD Codes: F20.9 - Schizophrenia, unspecified Assessment & Plan Continue oral Risperdal as ordered. Need to assess tolerability of oral agent for a few more days before initiating long-acting injectable, especially given age and medical comorbidities (e.g. decreased GFR). Continue melatonin for sleep. Follow-up BMP. Hospitalist input noted and appreciated. Monitor cough/ respiratory symptoms. Chest x-ray on admission was read as no acute disease. Continue to monitor on the inpatient unit. Continue other medications and care as ordered. Justification for Cont. Inpt. High risk for decompensation in less restrictive environment. Discharge Planning NURSING HOME placement. I have discussed this with the patient, and she is agreeable to placement at this time. I discussed with counselor who will begin sending out [facility] referrals. Request HC Surrog/Guard Advoc?: Yes Problem Qualifiers (1) Schizophrenia: Qualified Codes: F20.0 - Paranoid schizophrenia Darell Gross MD Aug 21, 2017 12:28
[2017-08-21 16:15] VITALS: BP 155/82; PULSE 105; RESP 16; TEMP 97.2; O2SAT 98
[2017-08-21] MEDS: MELATONIN 5 MG TAB PO SCH (21:00)
[2017-08-22] MEDS: HALOPERIDOL LACTATE 5 MG/ML AMP IM PRN ×2 (00:02→10:50)
[2017-08-22 06:11] VITALS: BP 105/72; PULSE 83; RESP 16; TEMP 98; O2SAT 96
[2017-08-22] MEDS: GABAPENTIN 300 MG CAP PO SCH ×3 (09:00→17:26)
[2017-08-22] MEDS: NICOTINE 21 MG/24 HR PATCH T-DERMAL SCH (09:00)
[2017-08-22] MEDS: LORATADINE 10 MG TAB PO SCH (09:00)
[2017-08-22] MEDS: REMOVE OLD PATCH T-DERMAL SCH (09:00)
[2017-08-22] MEDS: BUDESONIDE-FORMOTEROL 80/4.5 MCG INHALER INH SCH ×2 (09:00→21:00)
[2017-08-22] MEDS: amLODIPine BESYLATE 5 MG TAB PO SCH (09:00)
[2017-08-22] MEDS: SODIUM CHLORIDE 1 GRAM TAB PO SCH ×2 (09:00→22:09)
[2017-08-22 10:31] LABS: BICARBONATE 29.8 MEQ/L (21.0-32.0); POTASSIUM 4.3 MEQ/L (3.5-5.1)
--- NOTE | 2017-08-22 10:54 | HHI.PR ---
Subjective Remarks awake and alert, appears paranoid discussed with her about refusing meds- my concern specifically with the MDIs- states she is on Proair and sympbicort as OP- she agreed to use them she denies any cough or shortness of breath but on exam- some occasional wheeze Objective Vitals Vital Signs Date Time Temp Pulse Resp B/P (MAP) Pulse Ox O2 Delivery O2 Flow Rate FiO2 08/22/17 06:11 98.0 83 16 105/72 (83) 96 08/21/17 16:16 08/21/17 16:15 97.2 105 16 155/82 (106) 98 I/O 08/21/17 08/21/17 08/21/17 08/22/17 08/22/17 08/22/17 07:00 15:00 23:00 07:00 15:00 23:00 Intake Total 400 ml 360 ml Balance 400 ml 360 ml Intake Oral 400 ml 360 ml # Voids 3 Result Diagram: 08/18/17 1428 08/22/17 0834 Imaging Last Impressions Head CT 08/16/172204 Signed Impressions: Service Date/Time: Thursday, August 17, 2017 02:03 - CONCLUSION: No acute disease. Dylan Haddad MD Chest X-Ray 08/16/172204 Signed Impressions: Service Date/Time: Wednesday, August 16, 2017 22:37 - CONCLUSION: COPD No evidence of acute process. Juno Uriostegui MD Neck CT 08/16/17 0000 Signed Impressions: Service Date/Time: Thursday, August 17, 2017 02:05 - CONCLUSION: 1. The cause of the patient's difficulty swallowing is not seen. 2. Mild left maxillary sinus disease. Dylan Haddad MD Objective Remarks awake and alert, oriented x 3, 02 sats 100% at room air anicteric lungs- decreased breath sounds, occasional rhnchi regular rhythm abdomen soft, nontender extremities no edema A/P Problem List: (1) COPD (chronic obstructive pulmonary disease) ICD Code: J44.9 - Chronic obstructive pulmonary disease, unspecified Assessment and Plan 67-year-old female admitted secondary to psychosis. Hyponatremia present. Hyponatremia- improved Acute Kidney injury PO sodium chloride supplement BID for 2 days Follow renal functions, sodium levels- in am ff BMP COPD- in mild exacerbation Continue albuterol every 4 hours as needed via inhaler Continue Symbicort twice a day inhaler for maintenance. continue on Por- air 2 puffs scheduled monitor History of hypertension- good readings -on amlodipine- not consistently taking- will DC and monitor Psychosis History of schizophrenia History of general anxiety disorder History of depression Management via psychiatry d/w patient at length regarding her MDis Joseph Pierce MD Aug 22, 2017 10:54
--- NOTE | 2017-08-22 11:45 | HHI.PYPN ---
Subjective Chief Complaint: psychosis Remarks Patient seen and examined with nurse. Chart reviewed. Case discussed with nursing staff who reports that the patient refused medications this morning. She was noted by nursing staff to be frankly responding to internal stimuli. On my examination today, the patient presents as more paranoid. She tells me regarding medication refusal that "I don't want to take them. I think they're not necessary now." Somewhat irritable and dysphoric. She is discharge focused and insists "I was already released." Denies side effects from medications. No physical complaints. Remains agreeable to assisted living placement. Review of Systems ROS Limitations: Psychotic, Poor Historian Except as stated in HPI: all other systems reviewed are Neg Mental Status Examination Appearance: Appropriate Consciousness: Alert Orientation: Person, Place (at least) Motor Activity: Other (no motor abnormalities noted) Speech: Unremarkable Language: Adequate Fund of Knowledge: Adequate Attention and Concentration: Other (somewhat hypervigilant today) Mood: Irritable Affect: Other (consistent with stated mood) Thought Process & Associations: Other (fairly linear) Hallucination Type: None Delusion Type: Paranoid (ongoing) Suicidal Ideation: No (None voiced) Homicidal Ideation: No (None voiced) Insight: Poor Judgment: Poor Results Labs Test 08/22/17 08:34 Blood Urea Nitrogen 32 MG/DL Creatinine 1.20 MG/DL Random Glucose 93 MG/DL Calcium Level 9.9 MG/DL Sodium Level 135 MEQ/L Potassium Level 4.3 MEQ/L Chloride Level 99 MEQ/L Carbon Dioxide Level 29.8 MEQ/L Anion Gap 6 MEQ/L Estimat Glomerular Filtration Rate 45 ML/MIN Date/Time Source Procedure Growth Status 08/16/17 23:05 Throat Group A Streptococcus Screen - Final NO GP A BETA STREP ISOLATED. Complete 08/16/17 23:15 Urine Catheterized Urine Urine Culture - Final 10-50,000 CFU/ML MIXED GRAM POSITIVE ... Complete Labs reviewed. Renal function stable. Hyponatremia improved. Hypercalcemia resolved. Vitals/IOs Vital Signs Date Time Temp Pulse Resp B/P (MAP) Pulse Ox O2 Delivery O2 Flow Rate FiO2 08/22/17 06:11 98.0 83 16 105/72 (83) 96 Assessment & Plan Problem List: (1) Schizophrenia ICD Codes: F20.9 - Schizophrenia, unspecified Assessment & Plan Ongoing psychotic symptoms. Titrate scheduled Risperdal to 1 mg twice daily and titrated Haldol IM backup to 3 mg twice daily as needed to target psychotic symptoms. Plan remains for long-acting injectable, but if the patient continues to refuse Risperdal we may go with Haldol Decanoate instead. Continue to monitor on the inpatient unit. Hospitalist input appreciated. Continue other medications and care as ordered. Justification for Cont. Inpt. Med changes. Impairment in reality construction. High risk for decompensation in a less restrictive environment. Discharge Planning Assisted living placement. Case discussed with counselor. Request HC Surrog/Guard Advoc?: Yes Problem Qualifiers (1) Schizophrenia: Qualified Codes: F20.0 - Paranoid schizophrenia Darell Gross MD Aug 22, 2017 11:45
[2017-08-22] MEDS ORDERED: HALOPERIDOL LACTATE 5 MG/ML AMP IM PRN (14:15)
[2017-08-22 17:30] VITALS: BP 125/71; PULSE 100; RESP 16; TEMP 97.6; O2SAT 96
[2017-08-22] MEDS: risperiDONE ODT 1 MG TAB PO SCH (22:11)
[2017-08-22] MEDS: MELATONIN 5 MG TAB PO SCH (22:11)
[2017-08-23] MEDS: ALBUTEROL SULFATE 90 MCG/ACT HFA 8 GM INHALER INH PRN ×2 (00:38→06:31)
[2017-08-23 06:00] VITALS: BP 145/64; PULSE 112; RESP 17; TEMP 97.4; O2SAT 97
[2017-08-23] MEDS: LORATADINE 10 MG TAB PO SCH (08:30)
[2017-08-23] MEDS: risperiDONE ODT 1 MG TAB PO SCH ×2 (08:30→22:16)
[2017-08-23] MEDS: GABAPENTIN 300 MG CAP PO SCH ×3 (08:30→22:16)
[2017-08-23] MEDS: NICOTINE 21 MG/24 HR PATCH T-DERMAL SCH (08:31)
[2017-08-23] MEDS: REMOVE OLD PATCH T-DERMAL SCH (08:31)
[2017-08-23] MEDS: SODIUM CHLORIDE 1 GRAM TAB PO SCH ×2 (08:31→22:16)
[2017-08-23 08:33] LABS: POTASSIUM 4.3 MEQ/L (3.5-5.1)
[2017-08-23] MEDS: BUDESONIDE-FORMOTEROL 80/4.5 MCG INHALER INH SCH ×2 (08:35→22:16)
--- NOTE | 2017-08-23 15:26 | HHI.PR ---
Subjective Remarks no complains coughing - dry on exam- sonme expiratory wheezes Objective Vitals Vital Signs Date Time Temp Pulse Resp B/P (MAP) Pulse Ox O2 Delivery O2 Flow Rate FiO2 08/23/17 06:00 97.4 112 17 145/64 (91) 97 08/22/17 17:30 97.6 100 16 125/71 (89) 96 I/O 08/22/17 08/22/17 08/22/17 08/23/17 08/23/17 08/23/17 07:00 15:00 23:00 07:00 15:00 23:00 Intake Total 720 ml Balance 720 ml Intake Oral 720 ml Result Diagram: 08/23/1745 Imaging Last Impressions Head CT 08/16/172204 Signed Impressions: Service Date/Time: Thursday, August 17, 2017 02:03 - CONCLUSION: No acute disease. Dylan Haddad MD Chest X-Ray 08/16/172204 Signed Impressions: Service Date/Time: Wednesday, August 16, 2017 22:37 - CONCLUSION: COPD No evidence of acute process. Juno Uriostegui MD Neck CT 08/16/17 0000 Signed Impressions: Service Date/Time: Thursday, August 17, 2017 02:05 - CONCLUSION: 1. The cause of the patient's difficulty swallowing is not seen. 2. Mild left maxillary sinus disease. Dylan Haddad MD Objective Remarks awake and alert, oriented x 3, 02 sats 100% at room air anicteric lungs- decreased breath sounds, few expiratory wheezing regular rhythm abdomen soft, nontender extremities no edema A/P Problem List: (1) COPD (chronic obstructive pulmonary disease) ICD Code: J44.9 - Chronic obstructive pulmonary disease, unspecified Assessment and Plan 67-year-old female admitted secondary to psychosis. Hyponatremia present. Hyponatremia- improved Acute Kidney injury PO sodium chloride supplement BID for 2 days Follow renal functions, ff BMP COPD- in mild exacerbation Continue albuterol every 4 hours as needed via inhaler Continue Symbicort twice a day inhaler for maintenance. continue on Por- air 2 puffs scheduled - start short course Prednisone 40 mg po daily - add spiriva History of hypertension- good readings -on amlodipine- not consistently taking- will DC and monitor Psychosis History of schizophrenia History of general anxiety disorder History of depression Management via psychiatry d/w patient at length regarding her MDis 08/22 Joseph Pierce MD Aug 23, 2017 15:26
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
[2017-08-23] MEDS: predniSONE 20 MG TAB PO SCH (16:36)
[2017-08-23] MEDS: TIOTROPIUM BROMIDE 18 MCG INH INH SCH (16:37)
[2017-08-23 18:08] VITALS: BP 177/80; PULSE 98; RESP 18; TEMP 98.6; O2SAT 98
[2017-08-23] MEDS: MELATONIN 5 MG TAB PO SCH (22:15)
[2017-08-24 06:12] VITALS: BP 152/77; PULSE 108; RESP 18; TEMP 97.8; O2SAT 96
[2017-08-24] MEDS: GABAPENTIN 300 MG CAP PO SCH ×2 (08:33→21:11)
[2017-08-24] MEDS: SODIUM CHLORIDE 1 GRAM TAB PO SCH ×2 (08:33→21:11)
[2017-08-24] MEDS: risperiDONE ODT 1 MG TAB PO SCH ×2 (08:33→21:11)
[2017-08-24] MEDS: predniSONE 20 MG TAB PO SCH (08:33)
[2017-08-24] MEDS: LORATADINE 10 MG TAB PO SCH (08:33)
[2017-08-24] MEDS: NICOTINE 21 MG/24 HR PATCH T-DERMAL SCH (08:35)
[2017-08-24] MEDS: BUDESONIDE-FORMOTEROL 80/4.5 MCG INHALER INH SCH ×2 (08:36→21:10)
[2017-08-24] MEDS: TIOTROPIUM BROMIDE 18 MCG INH INH SCH (08:36)
[2017-08-24] MEDS: REMOVE OLD PATCH T-DERMAL SCH (08:49)
[2017-08-24 16:33] VITALS: BP 149/84; PULSE 90; RESP 18; TEMP 98.1; O2SAT 97
--- NOTE | 2017-08-24 16:39 | HHI.PYPN ---
Subjective Chief Complaint: psychosis Remarks Pt seen and discussed with staff. She reports that she slept well last night. She was compliant with medications today and less paranoid and suspicious. No behavioral problems, but has stayed in her room all day. No SI/HI Mental Status Examination Appearance: Appropriate Consciousness: Alert Orientation: Person, Place, Date/Time Motor Activity: Other (no motor abnormalities noted) Speech: Unremarkable Language: Adequate Fund of Knowledge: Adequate Attention and Concentration: Adequate Memory: Unremarkable Mood: Irritable Affect: Flat Thought Process & Associations: Linear Thought Content: Delusional Hallucination Type: None Delusion Type: Paranoid Suicidal Ideation: No Suicidal Plan: No Suicidal Intention: No Homicidal Ideation: No Homicidal Plan: No Homicidal Intention: No Insight: Poor Judgment: Poor Results Labs Date/Time Source Procedure Growth Status 08/16/17 23:05 Throat Group A Streptococcus Screen - Final NO GP A BETA STREP ISOLATED. Complete 08/16/17 23:15 Urine Catheterized Urine Urine Culture - Final 10-50,000 CFU/ML MIXED GRAM POSITIVE ... Complete Vitals/IOs Vital Signs Date Time Temp Pulse Resp B/P (MAP) Pulse Ox O2 Delivery O2 Flow Rate FiO2 08/24/17 16:33 98.1 90 18 149/84 (105) 97 Assessment & Plan Problem List: (1) Schizophrenia ICD Codes: F20.9 - Schizophrenia, unspecified Assessment & Plan Continue current tx plan Estimated LOS: days Justification for Cont. Inpt. impairments in reality testing Request HC Surrog/Guard Advoc?: Yes Problem Qualifiers (1) Schizophrenia: Qualified Codes: F20.0 - Paranoid schizophrenia Mary Kitchen MD Aug 24, 2017 16:39
[2017-08-24] MEDS: RESP: ALBUTEROL 2.5 MG/IPRATROPIUM 0.5 MG NEB (SCH) NEB ×2 (17:15→20:00)
--- NOTE | 2017-08-24 17:21 | HHI.PR ---
Subjective Remarks eeling better, getting around more but complains of wheezing still- on exam- still but less compared to yesterday Objective Vitals Vital Signs Date Time Temp Pulse Resp B/P (MAP) Pulse Ox O2 Delivery O2 Flow Rate FiO2 08/24/17 16:33 98.1 90 18 149/84 (105) 97 08/24/17 06:12 97.8 108 18 152/77 (102) 96 08/23/17 18:08 98.6 98 18 177/80 (112) 98 I/O 08/23/17 08/23/17 08/23/17 08/24/17 08/24/17 08/24/17 07:00 15:00 23:00 07:00 15:00 23:00 Intake Total 720 ml 390 ml Balance 720 ml 390 ml Intake Oral 720 ml 390 ml Result Diagram: 08/23/1745 Imaging Last Impressions Head CT 08/16/172204 Signed Impressions: Service Date/Time: Thursday, August 17, 2017 02:03 - CONCLUSION: No acute disease. Dylan Haddad MD Chest X-Ray 08/16/172204 Signed Impressions: Service Date/Time: Wednesday, August 16, 2017 22:37 - CONCLUSION: COPD No evidence of acute process. Juno Uriostegui MD Neck CT 08/16/17 0000 Signed Impressions: Service Date/Time: Thursday, August 17, 2017 02:05 - CONCLUSION: 1. The cause of the patient's difficulty swallowing is not seen. 2. Mild left maxillary sinus disease. Dylan Haddad MD Objective Remarks awake and alert, oriented x 3, 02 satsgood anicteric lungs- decreased breath sounds, + few expiratory wheezing, occasional rhonchi regular rhythm abdomen soft, nontender extremities no edema, no calf tenderness, some superficial varicose veins A/P Problem List: (1) COPD (chronic obstructive pulmonary disease) ICD Code: J44.9 - Chronic obstructive pulmonary disease, unspecified Assessment and Plan 67-year-old female admitted secondary to psychosis. Hyponatremia present. Hyponatremia- improved Acute Kidney injury PO sodium chloride supplement BID for 2 days Follow renal functions, COPD- in mild exacerbation Continue albuterol every 4 hours as needed via inhaler Continue Symbicort twice a day inhaler for maintenance. continue on Por- air 2 puffs scheduled - start short course Prednisone 40 mg po daily- 08/23 - add spiriva - give scheduled 3 doses of duonebulization x 3 History of hypertension- - elevated readings -on amlodipine- will restart Psychosis History of schizophrenia History of general anxiety disorder History of depression Management via psychiatry d/w patient at length regarding her MDis 08/22 Joseph Pierce MD Aug 24, 2017 17:21
[2017-08-24] MEDS: ACETAMINOPHEN 325 MG TAB PO PRN (18:34)
[2017-08-24] MEDS: MELATONIN 5 MG TAB PO SCH (21:11)
[2017-08-24 22:16] VITALS: O2SAT 97
[2017-08-25] MEDS: RESP: ALBUTEROL 2.5 MG/IPRATROPIUM 0.5 MG NEB (SCH) NEB
[2017-08-25 05:58] VITALS: BP 169/87; PULSE 95; RESP 17; TEMP 98; O2SAT 98
[2017-08-25] MEDS: GABAPENTIN 300 MG CAP PO SCH ×2 (08:43→20:06)
[2017-08-25] MEDS: risperiDONE ODT 1 MG TAB PO SCH (08:43)
[2017-08-25] MEDS: BUDESONIDE-FORMOTEROL 80/4.5 MCG INHALER INH SCH ×2 (08:43→20:05)
[2017-08-25] MEDS: SODIUM CHLORIDE 1 GRAM TAB PO SCH ×2 (08:43→20:05)
[2017-08-25] MEDS: predniSONE 20 MG TAB PO SCH (08:44)
[2017-08-25] MEDS: REMOVE OLD PATCH T-DERMAL SCH (08:44)
[2017-08-25] MEDS: TIOTROPIUM BROMIDE 18 MCG INH INH SCH (08:44)
[2017-08-25] MEDS: NICOTINE 21 MG/24 HR PATCH T-DERMAL SCH (08:44)
[2017-08-25] MEDS: amLODIPine BESYLATE 5 MG TAB PO SCH (08:44)
[2017-08-25] MEDS: LORATADINE 10 MG TAB PO SCH (08:44)
--- NOTE | 2017-08-25 10:50 | HHI.PYPN ---
Subjective Chief Complaint: psychosis Remarks Patient seen and examined with nurse. Chart reviewed. Case discussed with nursing staff. On my examination today, the patient remains mildly paranoid but does say of her medications "everything seems to be working well." She denies side effects from psychotropics but remains resistant to long-acting injectable antipsychotic. She does seem to have somewhat improving insight and is able to say that she realizes "that I have been resistant [to medications]." Beginning to cool to the possibility of assisted living placement. She would like to return to stay with her grandson, Balbir, but has not actually called to check to make sure that he is willing to have her in his home. No physical complaints. Review of Systems ROS Limitations: Psychotic, Poor Historian Except as stated in HPI: all other systems reviewed are Neg Mental Status Examination Appearance: Appropriate Consciousness: Alert Orientation: Person, Place, Date/Time Motor Activity: Other (no hand tremor, no dystonia, no dyskinesias.) Speech: Unremarkable Language: Adequate Fund of Knowledge: Adequate Attention and Concentration: Adequate Memory: Unremarkable Mood: Good Affect: Labile (mild) Thought Process & Associations: Linear Thought Content: Delusional Hallucination Type: None Delusion Type: Paranoid (mild) Suicidal Ideation: No Suicidal Plan: No Suicidal Intention: No Homicidal Ideation: No Homicidal Plan: No Homicidal Intention: No Insight: Poor Judgment: Poor Results Labs Date/Time Source Procedure Growth Status 08/16/17 23:05 Throat Group A Streptococcus Screen - Final NO GP A BETA STREP ISOLATED. Complete 08/16/17 23:15 Urine Catheterized Urine Urine Culture - Final 10-50,000 CFU/ML MIXED GRAM POSITIVE ... Complete Labs reviewed. Ongoing mild hyponatremia through the weekend. Vitals/IOs Vital Signs Date Time Temp Pulse Resp B/P (MAP) Pulse Ox O2 Delivery O2 Flow Rate FiO2 08/25/17 05:58 98.0 95 17 169/87 (939) 98 Assessment & Plan Problem List: (1) Schizophrenia ICD Codes: F20.9 - Schizophrenia, unspecified Assessment & Plan Titrate Risperdal to 1mg/2 mg to target residual psychotic symptoms. Continue to monitor on an inpatient unit. Hospitalist input noted and appreciated. Continue other medications and care as ordered. Justification for Cont. Inpt. Med changes. Resolving impairments in reality construction. High risk for decompensation in a less restrictive environment. Discharge Planning Case discussed with counselor. Counselor continues to explore assisted livings. Counselor also to reach out to grandson to explore whether home with him is an option. Request HC Surrog/Guard Advoc?: Yes Problem Qualifiers (1) Schizophrenia: Qualified Codes: F20.0 - Paranoid schizophrenia Daerll Gross MD Aug 25, 2017 10:50
[2017-08-25 15:30] VITALS: BP 171/79; PULSE 105; RESP 18; TEMP 97.7; O2SAT 98
[2017-08-25] MEDS ORDERED: cloNIDine HCL 0.1 MG TAB PO PRN (15:45)
--- NOTE | 2017-08-25 17:40 | HHI.PR ---
Subjective Remarks smiling up and ambulating states breathing better up and ambulating Objective Vitals Vital Signs Date Time Temp Pulse Resp B/P (MAP) Pulse Ox O2 Delivery O2 Flow Rate FiO2 08/25/17 15:30 97.7 105 18 171/79 (109) 98 08/25/17 05:58 98.0 95 17 169/87 (114) 98 08/24/17 22:16 97 I/O 08/24/17 08/24/17 08/24/17 08/25/17 08/25/17 08/25/17 07:00 15:00 23:00 07:00 15:00 23:00 Intake Total 720 ml Balance 720 ml Intake Oral 720 ml # Voids 1 Result Diagram: 08/23/17 0745 Imaging Last Impressions Head CT 08/16/172204 Signed Impressions: Service Date/Time: Thursday, August 17, 2017 02:03 - CONCLUSION: No acute disease. Dylan Haddad MD Chest X-Ray 08/16/172204 Signed Impressions: Service Date/Time: Wednesday, August 16, 2017 22:37 - CONCLUSION: COPD No evidence of acute process. Juno Uriostegui MD Neck CT 08/16/17 0000 Signed Impressions: Service Date/Time: Thursday, August 17, 2017 02:05 - CONCLUSION: 1. The cause of the patient's difficulty swallowing is not seen. 2. Mild left maxillary sinus disease. Dylan Haddad MD Objective Remarks awake and alert, oriented x 3, 02 sats good anicteric lungs- decreased breath sounds,no wheezing, occasional rhonchi regular rhythm abdomen soft, nontender extremities no edema, up and ambulating A/P Problem List: (1) COPD (chronic obstructive pulmonary disease) ICD Code: J44.9 - Chronic obstructive pulmonary disease, unspecified Assessment and Plan 67-year-old female admitted secondary to psychosis. Hyponatremia present. Hyponatremia- improved Acute Kidney injury- reolved Follow renal functions, good po COPD- in mild exacerbation Continue albuterol every 4 hours as needed via inhaler Continue Symbicort twice a day inhaler for maintenance. continue on Por- air 2 puffs scheduled - start short course Prednisone 40 mg po daily- 08/23 decrease to 30 mg in am - Continue Spiriva History of hypertension- - elevated readings -on amlodipine-- 5 mg- restarted today- will monitor Psychosis History of schizophrenia History of general anxiety disorder History of depression Management via psychiatry d/w patient at length regarding her MDis 08/22 Joseph Pierce MD Aug 25, 2017 17:40
[2017-08-25 18:15] VITALS: BP 130/80; PULSE 88
[2017-08-25] MEDS: ACETAMINOPHEN 325 MG TAB PO PRN (19:32)
[2017-08-25] MEDS: MELATONIN 5 MG TAB PO SCH (20:05)
[2017-08-25] MEDS: risperiDONE ODT 2 MG TAB PO SCH (20:08)
[2017-08-26 05:32] VITALS: BP 160/79; PULSE 104; RESP 17; TEMP 97.4; O2SAT 92
[2017-08-26] MEDS: GABAPENTIN 300 MG CAP PO SCH ×2 (08:07→22:13)
[2017-08-26] MEDS: SODIUM CHLORIDE 1 GRAM TAB PO SCH ×2 (08:07→22:13)
[2017-08-26] MEDS: NICOTINE 21 MG/24 HR PATCH T-DERMAL SCH ×3 (08:07→08:27)
[2017-08-26] MEDS: TIOTROPIUM BROMIDE 18 MCG INH INH SCH (08:07)
[2017-08-26] MEDS: risperiDONE ODT 1 MG TAB PO SCH (08:08)
[2017-08-26] MEDS: predniSONE 10 MG TAB PO SCH (08:09)
[2017-08-26] MEDS: LORATADINE 10 MG TAB PO SCH (08:09)
[2017-08-26] MEDS: amLODIPine BESYLATE 5 MG TAB PO SCH (08:09)
[2017-08-26] MEDS: BUDESONIDE-FORMOTEROL 80/4.5 MCG INHALER INH SCH ×2 (08:19→21:00)
[2017-08-26] MEDS: REMOVE OLD PATCH T-DERMAL SCH ×3 (08:19→08:27)
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
--- NOTE | 2017-08-26 11:58 | PD.TTN ---
Patient Problems 1. Discharge planning 2. Medication compliance 3. Knowledge deficit 4. Lack of coping skills Progress Toward Goals Provider Present: Dr. Gaurav Gross Provider Input: Patient is compliant with medication and seems to be psychiatrically stablize. Patient provides not insight to her mental health but is willing to have placement. Nurse(s) Input: Patient is cooperative and compliant with medications. Patient has no behavioral issues on the unit. Psychiatric Counselors Present: Lilia King [facility], Anna Gu [facility] Psych Therapist Input: Patient is cooperative and calm and was informed about potential placement at [facility]. Patient was open and willing to go to facility. Group Spec/RT/OT/KRUEGER Present: Chapo Rudd OT Group Spec/RT/OT/KRUEGER Input: Patient is selective with groups. [facility] Aug 26, 2017 11:58
[2017-08-26 16:05] VITALS: BP 150/71; PULSE 109; RESP 18; TEMP 97.5; O2SAT 98
--- NOTE | 2017-08-26 16:05 | HHI.PR ---
Subjective Remarks no complains no sputum production up and ambulating Objective Vitals Vital Signs Date Time Temp Pulse Resp B/P (MAP) Pulse Ox O2 Delivery O2 Flow Rate FiO2 08/26/17 05:32 97.4 104 17 160/79 (106) 92 08/25/17 18:15 88 130/80 (97) I/O 08/25/17 08/25/17 08/25/17 08/26/17 08/26/17 08/26/17 07:00 15:00 23:00 07:00 15:00 23:00 Intake Total 720 ml Balance 720 ml Intake Oral 720 ml # Voids 2 Result Diagram: 08/23/17 0745 Imaging Last Impressions Head CT 08/16/172204 Signed Impressions: Service Date/Time: Thursday, August 17, 2017 02:03 - CONCLUSION: No acute disease. Dylan Haddad MD Chest X-Ray 08/16/172204 Signed Impressions: Service Date/Time: Wednesday, August 16, 2017 22:37 - CONCLUSION: COPD No evidence of acute process. Juno Uriostegui MD Neck CT 08/16/17 0000 Signed Impressions: Service Date/Time: Thursday, August 17, 2017 02:05 - CONCLUSION: 1. The cause of the patient's difficulty swallowing is not seen. 2. Mild left maxillary sinus disease. Dylan Haddad MD Objective Remarks awake and alert, oriented x 3, 02 sats good anicteric lungs- no rales or wheezes regular rhythm abdomen soft, nontender extremities no edema, up and ambulating A/P Problem List: (1) COPD (chronic obstructive pulmonary disease) ICD Code: J44.9 - Chronic obstructive pulmonary disease, unspecified Assessment and Plan 67-year-old female admitted secondary to psychosis. Hyponatremia present. Hyponatremia- improved Acute Kidney injury- resolved Follow renal functions, good po COPD- in mild exacerbation Continue albuterol every 4 hours as needed via inhaler Continue Symbicort twice a day inhaler for maintenance. continue on Por- air 2 puffs scheduled - start short course Prednisone 40 mg po daily- 08/23- decrease to 30 mg po daily-08/26- taper gradually decrease to 30 mg in am - Continue Spiriva History of hypertension- - elevated readings -on amlodipine-- 5 mg- restarted today- will monitor Psychosis History of schizophrenia History of general anxiety disorder History of depression Management via psychiatry d/w patient at length regarding her MDis 08/22 Joseph Pierce MD Aug 26, 2017 16:05
[2017-08-26] MEDS: ACETAMINOPHEN 325 MG TAB PO PRN (18:40)
[2017-08-26] MEDS: MELATONIN 5 MG TAB PO SCH (22:13)
[2017-08-26] MEDS: cloNIDine HCL 0.1 MG TAB PO SCH (22:13)
[2017-08-26] MEDS: risperiDONE ODT 2 MG TAB PO SCH (22:13)
[2017-08-26] MEDS: IBUPROFEN 600 MG TAB PO PRN (22:54)
[2017-08-27 05:49] VITALS: BP 124/66; PULSE 68; RESP 16; TEMP 97.7; O2SAT 97
[2017-08-27 05:53] VITALS: BP 134/73; PULSE 99; RESP 18; TEMP 98.1
[2017-08-27] MEDS: TIOTROPIUM BROMIDE 18 MCG INH INH SCH (08:35)
[2017-08-27] MEDS: GABAPENTIN 300 MG CAP PO SCH (08:40)
[2017-08-27] MEDS: BUDESONIDE-FORMOTEROL 80/4.5 MCG INHALER INH SCH ×2 (08:40→14:40)
[2017-08-27] MEDS: LORATADINE 10 MG TAB PO SCH (08:40)
[2017-08-27] MEDS: SODIUM CHLORIDE 1 GRAM TAB PO SCH (08:41)
[2017-08-27] MEDS: cloNIDine HCL 0.1 MG TAB PO SCH (08:41)
[2017-08-27] MEDS: amLODIPine BESYLATE 5 MG TAB PO SCH (08:41)
[2017-08-27] MEDS: risperiDONE ODT 1 MG TAB PO SCH (08:41)
[2017-08-27] MEDS: NICOTINE 21 MG/24 HR PATCH T-DERMAL SCH (08:43)
[2017-08-27] MEDS: REMOVE OLD PATCH T-DERMAL SCH (08:43)
[2017-08-27] MEDS: predniSONE 10 MG TAB PO SCH (08:43)
--- NOTE | 2017-08-27 10:55 | RADRPT ---
EXAM DATE/TIME: 08/27/2017 10:22 [facility] COMPARISON: CHEST SINGLE AP, August 16, 2017, 22:37. INDICATIONS : Respiratory disease. MEDICAL HISTORY : Chronic obstructive pulmonary disease. Hypertension Tachycardia. SURGICAL HISTORY : None. ENCOUNTER: Initial ACUITY: 1 week PAIN SCORE: 0/10 LOCATION: chest FINDINGS: Hyperexpanded lungs again noted with mild scarring of the bases. No acute infiltrate. No pleural effu mendy or pneumothorax. Old, healed fracture seen of the left sixth rib. Normal heart size. Tortuous th oracic aorta. CONCLUSION: No evidence of acute cardiopulmonary disease. Dylan Parker MD on August 27, 2017 at 10:52 Board Certified Radiologist. This report was verified electronically.
[2017-08-27] MEDS ORDERED: RISP1 PO (11:43)
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
[2017-08-27] MEDS ORDERED: AMLO5 PO (14:36)
[2017-08-27] MEDS ORDERED: NEUR300C PO (14:36)
[2017-08-27] MEDS ORDERED: CLON.1 PO (14:36)
[2017-08-27] MEDS ORDERED: GNP5TAB6 PO (14:36)
[2017-08-27] MEDS ORDERED: CLAR10TA7 PO (14:36)
[2017-08-27] MEDS: IBUPROFEN 600 MG TAB PO PRN (14:38)
--- NOTE | 2017-08-27 14:58 | HHI.PR ---
Subjective Remarks 67-year-old female admitted secondary to psychosis. Hyponatremia present. Patient has been cleared by psychiatry. Can be discharged home today. We'll do her medications at discharge Objective Vitals Vital Signs Date Time Temp Pulse Resp B/P (MAP) Pulse Ox O2 Delivery O2 Flow Rate FiO2 08/27/17 05:53 98.1 99 18 134/73 (93) 08/26/17 23:54 18 08/26/17 19:40 18 08/26/17 16:05 97.5 109 18 150/71 (97) 98 Result Diagram: 08/23/17 0745 Imaging Last Impressions Chest X-Ray 08/27/17 0000 Signed Impressions: Service Date/Time: Sunday, August 27, 2017 10:22 - CONCLUSION: No evidence of acute cardiopulmonary disease. Dylan Parker MD Head CT 08/16/17 2205 Signed Impressions: Service Date/Time: Thursday, August 17, 2017 02:03 - CONCLUSION: No acute disease. Dylan Haddad MD Neck CT 08/16/17 0000 Signed Impressions: Service Date/Time: Thursday, August 17, 2017 02:05 - CONCLUSION: 1. The cause of the patient's difficulty swallowing is not seen. 2. Mild left maxillary sinus disease. Dylan Haddad MD Objective Remarks GENERAL: AWAKE ALERT AND ORIENTED AND TALKATIVE AND COOPERATIVE SKIN: Warm and dry. HEAD: Atraumatic. Normocephalic. EYES: Pupils equal and round. No scleral icterus. No injection or drainage. EOMI ENT: No nasal bleeding or discharge. Mucous membranes pink and moist. TONGUE MIDLINE NECK: Trachea midline. No JVD. SUPPLE CARDIOVASCULAR: Regular rate and rhythm. S1, S2 NO S3 OR S4 NO HEAVE OR THRILL RESPIRATORY: No accessory muscle use. Clear to auscultation. Breath sounds equal bilaterally. FEW RHONCHI GASTROINTESTINAL: Abdomen soft, non-tender, nondistended. Hepatic and splenic margins not palpable. MUSCULOSKELETAL: Extremities without clubbing, cyanosis, or edema. No obvious deformities. NEUROLOGICAL: Awake and alert. No obvious cranial nerve deficits. Motor grossly within normal limits. Five out of 5 muscle strength in the arms and legs. Normal speech. PSYCHIATRIC: Appropriate mood and affect; insight and judgment normal. Procedures none Medications and IVs Current Medications IV Flush (NS Flush) 2 ml UNSCH PRN IV FLUSH FLUSH AFTER USING IV ACCESS Last administered on 08/17/17 04:52; Start 08/16/17 at 22:15; Stop 08/18/17 at 09 :44; Status DC Lorazepam (Ativan Inj) 1 mg ONCE ONCE IV PUSH Last administered on 08/17/17 04:51; Start 08/17/17 at 04:15; Stop 08/17/17 at 04:16; Status DC Haloperidol Lactate (Haldol Inj) 2 mg ONCE ONCE IM ; Start 08/17/17 at 04:15; Stop 08/17/17 at 04:16; Status DC Albuterol/ Ipratropium (Duoneb Neb) 1 ampule ONCE ONCE INH Last administered on 08/17/17 16:10; Start 08/17/17 at 16:00; Stop 08/17/17 at 16:01; Status DC Diphenhydramine HCl (Benadryl) 25 mg Q6H PRN PO ALLERGIES; Start 08/17/17 at 17:00; Stop 08/18/17 at 09:44; Status DC Patient Own Medication PT OWN MED:ACETAMINOPHEN PM GELCAP 500... HS PRN PO SLEEP; Start 08/17/17 at 17:00; Stop 08/18/17 at 09:44; Status DC Naproxen (Naprosyn) 250 mg BID PRN PO PAIN 1-10 AND/OR AGITATION Last administered on 08/21/17 03:35; Start 08/17/17 at 23:00; Stop 08/22/17 at 10 :50; Status DC Lorazepam (Ativan) 1 mg Q6H PRN PO MODERATE TO SEVERE ANXIETY; Start 08/17/17 at 17:00; Stop 08/18/17 at 09:44; Status DC Lorazepam (Ativan Inj) 1 mg Q6H PRN IM MODERATE TO SEVERE ANXIETY; Start 08/17 at 17:00; Stop 08/18/17 at 09:44; Status DC Lorazepam (Ativan) 0.5 mg Q12H PRN PO MODERATE TO SEVERE ANXIETY Last administered on 08/17/17 22:03; Start 08/17/17 at 17:00; Stop 08/18/17 at 09 :44; Status DC Lorazepam (Ativan Inj) 0.5 mg Q12H PRN IM MODERATE TO SEVERE ANXIETY; Start at 17:00; Stop 08/18/17 at 09:44; Status DC Acetaminophen (Tylenol) 650 mg Q4H PRN PO Pain 1-5 or Temp >101F; Start at 17:00; Status UNV Magnesium Hydroxide (Milk Of Magnesia Liq) 30 ml DAILY PRN PO CONSTIPATION; Start 08/17/17 at 17:00 Al Hydrox/Mg Hydrox/Simethicone (Mag-Al Plus Susp Liq) 30 ml Q6H PRN PO DYSPEPSIA; Start 08/17/17 at 17:00 Nicotine (Habitrol 21 Mg Patch.24 Hr) 1 patch DAILY T-DERMAL Last administered on 08/18/17 08:26; Start 08/17/17 at 17:00 Miscellaneous Information 1 DAILY T-DERMAL Last administered on 08/18/17 08: 27; Start 08/18/17 at 09:00 Gabapentin (Neurontin) 300 mg NOW ONCE PO Last administered on 08/17/17 23: 13; Start 08/17/17 at 22:45; Stop 08/17/17 at 22:46; Status DC Gabapentin (Neurontin) 300 mg TID PO Last administered on 08/21/17 09:12; Start 08/18/17 at 09:00; Stop 08/23/17 at 12:44; Status DC Albuterol/ Ipratropium (Duoneb Neb) 1 ampule NOW ONCE NEB Last administered on 08/18/17 00:25; Start 08/17/17 at 22:45; Stop 08/17/17 at 22:46; Status DC Albuterol Sulfate (Proair Hfa Inh) 2 puff Q4H PRN INH SHORTNESS OF BREATH Last administered on 08/23/17 06:31; Start 08/18/17 at 11:00 Amlodipine Besylate (Norvasc) 5 mg DAILY PO Last administered on 08/21/17 09: 12; Start 08/18/17 at 10:30; Stop 08/22/17 at 10:59; Status DC Loratadine (Claritin) 10 mg DAILY PO Last administered on 08/27/17 08:40; Start 08/18/17 at 10:30 Paroxetine HCl (Paxil) 20 mg DAILY PO ; Start 08/18/17 at 11:00; Stop at 11:00; Status DC Quetiapine Fumarate (SEROquel) 25 mg BID PO Last administered on 08/18/17 11: 53; Start 08/18/17 at 10:30; Stop 08/18/17 at 13:56; Status DC Budesonide/ Formoterol Fumarate (Symbicort 80-4.5 Mcg Inh) 1 puff Q12HR INH Last administered on 08/27/17 14:40; Start 08/18/17 at 21:00 Risperidone (risperDAL M-TAB) 0.5 mg Q12HR PO Last administered on 08/21/17 09:12; Start 08/18/17 at 21:00; Stop 08/22/17 at 14:12; Status DC Haloperidol Lactate (Haldol Inj) 2 mg BID PRN IM REFUSES PO RISPERDAL Last administered on 08/22/17 10:50; Start 08/19/17 at 14:00; Stop 08/22/17 at 14 :12; Status DC Sodium Chloride (Sodium Chloride) 1 gm BID PO Last administered on 08/27/17 08:41; Start 08/20/17 at 21:00 Melatonin (Melatonin) 5 mg HS PO Last administered on 08/26/17 22:13; Start 08/20/17 at 21:00 Haloperidol Lactate (Haldol Inj) 3 mg BID PRN IM REFUSES PO RISPERDAL; Start 08/22/17 at 14:15 Risperidone (risperDAL M-TAB) 1 mg Q12HR PO Last administered on 08/25/17 08: 43; Start 08/22/17 at 21:00; Stop 08/25/17 at 12:08; Status DC Gabapentin (Neurontin) 300 mg BID PO Last administered on 08/27/17 08:40; Start 08/23/17 at 21:00 Prednisone (Deltasone) 40 mg DAILY PO Last administered on 08/25/17 08:44; Start 08/23/17 at 15:30; Stop 08/25/17 at 17:44; Status DC Tiotropium [place] (Spiriva Inh) 18 mcg DAILY INH Last administered on 08:35; Start 08/23/17 at 15:30 Albuterol/ Ipratropium (Duoneb Neb) 1 ampule Q4HR NEB NEB ; Start 08/24/17 at 17:15; Stop 08/25/17 at 00:01; Status DC Amlodipine Besylate (Norvasc) 5 mg DAILY PO Last administered on 08/27/17 08: 41; Start 08/25/17 at 09:00 Acetaminophen (Tylenol) 650 mg Q6H PRN PO PAIN 1-5 Last administered on 18:40; Start 08/24/17 at 18:30 Risperidone (risperDAL M-TAB) 1 mg DAILY PO Last administered on 08/27/17 08: 41; Start 08/26/17 at 09:00 Risperidone (risperDAL M-TAB) 2 mg HS PO Last administered on 08/26/17 22:13 ; Start 08/25/17 at 21:00 Clonidine (Catapres) 0.1 mg Q6H PRN PO SBP>160, DBP>90 Last administered on 15:53; Start 08/25/17 at 15:45 Prednisone (Deltasone) 30 mg DAILY PO Last administered on 08/27/17 08:43; Start 08/26/17 at 09:00 Clonidine (Catapres) 0.1 mg Q12HR PO Last administered on 08/27/17 08:41; Start 08/26/17 at 21:00 Ibuprofen (Motrin) 600 mg Q6H PRN PO PAIN > 6 Last administered on 08/27/17 14:38; Start 08/26/17 at 22:45 A/P Problem List: (1) COPD (chronic obstructive pulmonary disease) ICD Code: J44.9 - Chronic obstructive pulmonary disease, unspecified Assessment and Plan 67-year-old female admitted secondary to psychosis. Hyponatremia present. Hyponatremia- improved Acute Kidney injury- resolved Follow renal functions, good po COPD- in mild exacerbation Continue albuterol every 4 hours as needed via inhaler Continue Symbicort twice a day inhaler for maintenance. continue on Por- air 2 puffs scheduled - start short course Prednisone 40 mg po daily- 08/23- decrease to 30 mg po daily-08/26- taper gradually decrease to 30 mg in am - Continue Spiriva History of hypertension- - elevated readings -on amlodipine-- 5 mg- restarted today- will monitor Psychosis History of schizophrenia History of general anxiety disorder History of depression Management via psychiatry Eusebio Plaza DO Aug 27, 2017 14:58
[2017-08-27] MEDS ORDERED: PRED10PA PO (15:03)
[2017-08-27] MEDS ORDERED: NEBULIZER1 MI1 (15:03)
[2017-08-27] MEDS ORDERED: MUCI30TA2 PO (15:03)
[2017-08-27] MEDS ORDERED: IPRASOL INH (15:03)
[2017-08-27] MEDS ORDERED: NICO21DI25 T-DERMAL (15:03)
[2017-08-27] MEDS ORDERED: SODI1TAB PO (15:03)
[2017-08-27] MEDS ORDERED: SPIRCAP INH (15:03)
== END 2017-08-27 15:33 | DRG 885 ==
LOC: NEPC 20:40 → NEDA 08-17 16:53 → H250 08-17 20:25 → H260 08-21 09:45
PROVIDERS: ADMIT Psychiatry & Neurology Psychiatry; ATTEND Psychiatry & Neurology Psychiatry
DX: F20.9 Schizophrenia, unspecified (principal); N17.9 Acute kidney failure, unspecified; E87.1 Hypo-osmolality and hyponatremia; J44.1 Chronic obstructive pulmonary disease with (acute) exacerbation; E86.0 Dehydration; I10 Essential (primary) hypertension; Z91.14 Patient's other noncompliance with medication regimen; F12.90 Cannabis use, unspecified, uncomplicated; Z72.0 Tobacco use; Z59.0 Homelessness
CPT/HCPCS: 70450; 70490; 71010; 80048; 80053; 80061; 80307; 81001; 82140; 83036; 84443; 84484; 85025; 85610; 85730; 87081; 87086; 87880; 93005; 94640; 94664; 96374; J1630; J2060; J7512